=== PATIENT | female | born 1940 | race Caucasian/White ===

== ENCOUNTER 2019-04-24 14:00 | Emergency (ER) | payer MEDICARE, BC ==
[2019-04-24] MEDS ORDERED: HYDROmorphone 0.5 MG/0.5 ML Syringe IM ONE (15:09)
--- NOTE | 2019-04-24 15:16 | EDM.PDOC ---
ED HPI GENERAL MEDICAL PROBLEM - General Chief Complaint: Upper Extremity Injury/Pain Stated Complaint: [facility] Time Seen by Provider: 04/24/19 14:23 Source of Information: Reports: Patient, RN Notes Reviewed History Limitations: Reports: No Limitations - History of Present Illness INITIAL COMMENTS - FREE TEXT/NARRATIVE: Patient is a 78-year-old female who presents to the ED via [facility] for evaluation of right shoulder pain after a fall. The patient notes that she is from [place], [place], and is in town at a wedding, and is staying at a hotel, and she states that she ended up falling and injuring herself over a rolled up rug in the hallway. The patient states that she is not able to move her right arm very much due to the pain in her shoulder. She notes that she is predominantly right-handed. She does not note any prior injury or issues with the right shoulder. She does note a history positive for high blood pressure and asthma. She would rate her pain at a 10 out of 10, she did not take any sort of pain medications prior to arrival to the ER, nor she given any in the ambulance. Patient denies any numbness or tingling distal to the injury. She denies any loss of consciousness, blurred vision or double vision, or dizziness prior to the fall. She does state that she bit her lip, but denies any trauma to her teeth, or pain elsewhere. Right Shoulder Pain Score (Numeric/FACES): 10 - Related Data Allergies Allergy/AdvReac Type Severity Reaction Status Date / Time acetaminophen Allergy dizzy Verified 04/24/19 14:30 [From Darvocet-N] amoxicillin [From Augmentin] Allergy Rash Verified 04/24/19 14:30 clavulanic acid Allergy Rash Verified 04/24/19 14:30 [From Augmentin] indomethacin Allergy Rash Verified 04/24/19 14:30 latex Allergy Rash Verified 04/24/19 14:30 nitrofurantoin Allergy Rash Verified 04/24/19 14:30 propoxyphene Allergy dizzy Verified 04/24/19 14:30 [From Darvocet-N] Sulfa (Sulfonamide Allergy Hives Verified 04/24/19 14:30 Antibiotics) Home Meds: Home Meds Acetaminophen with Codeine [Tylenol with Codeine #3 Tablet] 1 each PO Q6H #20 tablet 04/24/19 [Rx] Fluticasone/Salmeterol [Advair 250-50] 1 puff PO BID 04/24/19 [History] Irbesartan/Hydrochlorothiazide [Irbesartan-Hctz 300-12.5 mg Tb] 1 tab PO DAILY 04/24/19 [History] Montelukast [Singulair] 10 mg PO DAILY 04/24/19 [History] Omeprazole 40 cap PO DAILY 04/24/19 [History] Potassium Chloride 20 meq PO BID 04/24/19 [History] Past Medical History HEENT History: Reports: Other (See Below) Other HEENT History: glasses Respiratory History: Reports: Asthma Genitourinary History: Reports: Other (See Below) Other Genitourinary History: bladder surgery TIRE ADJUSTER History: Reports: , Other (See Below) Other TIRE ADJUSTER History: hysterectomy Musculoskeletal History: Reports: Other (See Below) Other Musculoskeletal History: r knee replacement, r ahnd surgery Social & Family History - Tobacco Use Smoking Status *Q: Never Smoker - Caffeine Use Caffeine Use: Reports: Coffee - Recreational Drug Use Recreational Drug Use: No Review of Systems - Review of Systems Review Of Systems: See Below Constitutional: Reports: No Symptoms Eyes: Reports: No Symptoms Ears: Reports: No Symptoms Nose: Reports: No Symptoms Mouth/Throat: Reports: No Symptoms Respiratory: Reports: No Symptoms Cardiovascular: Reports: No Symptoms GI/Abdominal: Reports: No Symptoms Genitourinary: Reports: No Symptoms Musculoskeletal: Reports: Shoulder Pain (Right shoulder pain) Skin: Reports: No Symptoms Neurological: Denies: Numbness, Tingling Psychiatric: Reports: No Symptoms ED EXAM, GENERAL - Physical Exam Exam: See Below Exam Limited By: No Limitations General Appearance: Alert, WD/WN, No Apparent Distress Eye Exam: Bilateral Eye: EOMI, Normal Inspection, PERRL Ears: Normal External Exam, Normal Canal, Hearing Grossly Normal, Normal TMs Nose: Normal Inspection, Normal Mucosa, No Blood Throat/Mouth: Normal Inspection, Normal Lips, Normal Teeth, Normal Gums, Normal Oropharynx, Normal Voice, No Airway Compromise Head: Atraumatic, Normocephalic, Other (Her R upper lip is slightly swollen, this is the area that she states she bit this portion. denies pain) Neck: Normal Inspection Respiratory/Chest: No Respiratory Distress, Lungs Clear, Normal Breath Sounds, No Accessory Muscle Use, Chest Non-Tender Cardiovascular: Normal Peripheral Pulses, Regular Rate, Rhythm, No Murmur Peripheral Pulses: 3+: Radial (L), Radial (R) Back Exam: Normal Inspection, Full Range of Motion Extremities: Normal Inspection, Normal Capillary Refill, Limited Range of Motion (of right shoulder d/t pain. 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.) Neurological: Alert, Oriented, Normal Cognition, No Motor/Sensory Deficits Psychiatric: Normal Affect, Normal Mood Skin Exam: Warm, Dry, Intact, Normal Color, No Rash Course - Vital Signs Last Recorded V/S: Last Vital Signs Temp 96.6 F 04/24/19 14:06 Pulse 63 04/24/19 14:06 Resp 14 04/24/19 14:06 BP 110/58 L 04/24/19 14:06 Pulse Ox 95 04/24/19 14:06 - Orders/Labs/Meds Orders: Active Orders 24 hr Category Date Time Status Shoulder Comp Rt [CR] Stat Exams 04/24/19 14:23 Ordered DME for Discharge [COMM] Routine Oth 04/24/19 16:06 Ordered Meds: Medications Discontinued Medications Generic Name Dose Route Start Last Admin Trade Name Freq PRN Reason Stop Dose Admin Hydromorphone HCl 0.5 mg 04/24/19 15:09 04/24/19 15:27 Dilaudid IM 04/24/19 15:10 0.5 mg ONETIME ONE Administration Ondansetron HCl 4 mg 04/24/19 15:25 04/24/19 15:32 Zofran Odt PO 04/24/19 15:26 4 mg ONETIME ONE Administration - Re-Assessments/Exams Free Text/Narrative Re-Assessment/Exam: 04/24/19 15:14 Patient presents to the ED for evaluation of a right shoulder injury. I did order x-rays to be obtained, these do demonstrate a fracture of the humeral neck , official radiology read is pending, however I am questioning a possible impaction type injury. I will consult Dr. Harris for management of this injury. 04/24/19 16:17 Dr. Harris recommends putting the patient in a sling and having her follow-up with orthopedics sometime this week. I will provide the patient with a prescription for Tylenol 3 with codeine, she states she is taking this safely in the past for prior knee surgeries. Patient will be directed to follow-up with orthopedics in [facility], as they're traveling through [place]. Departure - Departure Time of Disposition: 16:18 Disposition: Home, Self-Care 01 Condition: Fair Clinical Impression: Fracture, humerus Qualifiers: Encounter type: initial encounter Humerus Location: proximal Fracture type: closed Fracture morphology: other fracture Fracture alignment: nondisplaced Laterality: right Qualified Code(s): S42.294A - Other nondisplaced fracture of upper end of right humerus, initial encounter for closed fracture - Discharge Information *PRESCRIPTION DRUG MONITORING PROGRAM REVIEWED*: No *COPY OF PRESCRIPTION DRUG MONITORING REPORT IN PATIENT DEISY: No Prescriptions: Acetaminophen with Codeine [Tylenol with Codeine #3 Tablet] 1 each PO Q6H #20 tablet Instructions: Humerus Fracture Treated With Immobilization, [id number] Forms: ED Department Discharge Additional Instructions: You have been evaluated in the ED for your right shoulder injury. Your x-ray demonstrated that you have a fracture of your proximal humerus. Please use ice as tolerated to the affected area. You may take Tylenol 500 mg or Tylenol #3 q6 hrs for pain relief. Please do so until you have a tolerable level of pain with activity. Do not exceed 4000mg Tylenol in a 24 hour time period. Please be aware that the pain medication you have been prescribed also contains Tylenol, please make sure you are watching her much Tylenol you're taking in a 24-hour time span. The pain medication was electronically prescribed to the [place] [facility] located in the [facility] [employer] [facility] at [address] [facility]. Please call Ortho for follow-up and further evaluation. Please call and set up an appointment as soon as possible for further management. You have been given a CD of your images so that you may bring this to your orthopedic referral appointment. Please return to ED if your symptoms should change or worsen. - My Orders Last 24 Hours: My Active Orders 04/24/19 14:23 Shoulder Comp Rt [CR] Stat 04/24/19 16:06 DME for Discharge [COMM] Routine - Assessment/Plan Last 24 Hours: My Active Orders 04/24/19 14:23 Shoulder Comp Rt [CR] Stat 04/24/19 16:06 DME for Discharge [COMM] Routine
[2019-04-24] MEDS ORDERED: Ondansetron 4 MG Tab.DIS PO ONE (15:25)
--- NOTE | 2019-04-25 12:00 | CR ---
Right shoulder: Three views of the right shoulder were obtained. Slightly comminuted fracture is noted through the surgical neck of the proximal right humerus. Alignment remains close to anatomic. No additional fracture or other bony abnormality is seen. Impression: 1. Proximal right humeral fracture as described above. Diagnostic code #3
== END 2019-04-24 17:10 | disposition home or self-care (01) ==
LOC: JD.ED 14:00
DX: S42.211A Unspecified displaced fracture of surgical neck of right humerus, initial encounter for closed fracture (principal); I10 Essential (primary) hypertension; J45.909 Unspecified asthma, uncomplicated; Z88.8 Allergy status to other drugs, medicaments and biological substances; Z88.0 Allergy status to penicillin; Z88.6 Allergy status to analgesic agent; Z91.040 Latex allergy status; Z88.2 Allergy status to sulfonamides; Z79.51 Long term (current) use of inhaled steroids; Z79.899 Other long term (current) drug therapy; W01.0XXA Fall on same level from slipping, tripping and stumbling without subsequent striking against object, initial encounter; Y92.59 Other trade areas as the place of occurrence of the external cause
CPT/HCPCS: 73030; 96372; 99284; A9270; J1170; 99283